=== PATIENT | male | born 2005 | race Caucasian/White ===

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

== ENCOUNTER 2024-08-19 09:33 | Emergency (ER) | payer OTHER ==
[~2024-08-19] VITALS: Ht 185.4 cm; Wt 85.7 kg
[~2024-08-19 09:33] MED LIST changes: +PROZAC20 MG PO
[2024-08-19] MEDS ORDERED: LOMOTIL TABLET1 EACH PO (09:44)
[2024-08-19 10:38] VITALS: BP 108/88
== END 2024-08-19 10:30 | disposition home or self-care (01) ==
LOC: ED 09:33
DX: S62.329A Displaced fracture of shaft of unspecified metacarpal bone, initial encounter for closed fracture (principal); Z87.891 Personal history of nicotine dependence; J45.909 Unspecified asthma, uncomplicated; W22.8XXA Striking against or struck by other objects, initial encounter
CPT/HCPCS: 73130; 99283

== ENCOUNTER 2024-10-05 15:32 | Emergency (ER) | payer OTHER ==
[~2024-10-05] VITALS: Ht 185.4 cm; Wt 82.5 kg
[~2024-10-05 15:32] MED LIST changes: +LOMOTIL TABLET1 EACH PO
[2024-10-05 17:23] VITALS: BP 122/71
== END 2024-10-05 17:23 | disposition home or self-care (01) ==
LOC: ED 15:32
DX: S20.211A Contusion of right front wall of thorax, initial encounter (principal); W18.30XA Fall on same level, unspecified, initial encounter; Y93.72 Activity, wrestling; F17.200 Nicotine dependence, unspecified, uncomplicated; Z79.899 Other long term (current) drug therapy
CPT/HCPCS: 71101; 99284